=== PATIENT | female | born 1965 | race Caucasian/White ===

== ENCOUNTER 2020-09-01 16:41 | Emergency (ER) | payer MEDICAID, OTHER ==
[~2020-09-01] VITALS: Ht 152.4 cm; Wt 61.2 kg
[2020-09-01 16:52] VITALS: BP 132/92
[2020-09-01] MEDS ORDERED: ACET-2605 PO (17:16)
[2020-09-01] MEDS ORDERED: TRAM50TA2 PO (17:16)
--- NOTE | 2020-09-01 17:52 | NUR ---
LEFT THUMB SPICA WITH VELCRO IN PLACED. Patient discharged to home in stable condition. Written and verbal after care instructions given. Patient verbalizes understanding of instruction.
== END 2020-09-01 17:53 | disposition home or self-care (01) ==
LOC: ER 17:04
DX: M77.9 Enthesopathy, unspecified (principal)